=== PATIENT | female | born 1985 | race Caucasian/White ===

== ENCOUNTER 2017-09-23 23:11 | Inpatient (IN) | payer BC ==
[~2017-09-23] VITALS: Ht 165.1 cm; Wt 53.2 kg
[~2017-09-23 23:11] MED LIST: MECL12.52 PO
[2017-09-23 23:54] LABS: BILIRUBIN,URINE NEGATIVE (NEG); GLUCOSE,URINE NEGATIVE (NEG); NITRITE,URINE NEGATIVE (NEG); PH,URINE 7.5; PROTEIN,URINE NEGATIVE (NEG-TRACE); UROBILINOGEN,URINE 0.2 mg/dL (0.2 mg/dL)
[2017-09-23 23:59] LABS: BACTERIA,URINE 0 /HPF (0-FEW); SQUAMOUS EPITHELIAL CELL,UR FEW /LPF; WBC,URINE OCC /HPF (0-4)
[2017-09-24] MEDS ORDERED: ASPIRIN CHEWABLE 81 MG TABLET. PO ONE (00:15)
[2017-09-24] MEDS ORDERED: LABETALOL 20 MG/4 ML DISP.SYRIN. IVP ONE (00:15)
[2017-09-24] MEDS ORDERED: IV NORMAL SALINE 500ML BAG 500 ML IV ONE (00:15)
--- NOTE | 2017-09-24 00:15 | RAD ---
CT Head W/O Contrast: History: slurred speech Comparison: none Axial images were obtained without contrast. The rush and white matter appears normal and symmetrical for the patients age. There is no mass effect, extraaxial fluid collections or hydrocephalus. There is no gross bleed. There is no focal loss of rush-white matter distinction to suggest acute ischemia, i.e. stroke. Impression: No acute findings. RS Compliance Statement: One or more of the following individualized dose reduction techniques were utilized for this examination: 1. Automated exposure control 2. Adjustment of the mA and/or kV according to patient size 3. Use of iterative reconstruction technique Electronically signed by: Edson Gar III, MD (09/24/2017 12:12 AM) [facility]
--- NOTE | 2017-09-24 00:17 | PHYS DOC ---
Past Medical History Past Medical History: Anxiety, Depression, Hypertension Past Surgical History: No Surgical History Additional Past Surgical Histo: DNC Alcohol Use: Occasionally Drug Use: None Adult General Chief Complaint Chief Complaint: MULTIPLE COMPLAINTS HPI HPI 31-year-old female who presents the emergency department via [facility] after having a "allergic reaction". She started a new medication as citalopram and after taking one pill 30 minutes later reports having blotchy redness over the chest area. Patient also reports right-sided facial droop which she noticed after taking the pill at 7:00. She states her last known well was 7:00. She also has a headache on the right side that is a sharp shooting throbbing pain that is nonradiating intermittent. She also reports feeling tingling on the right side of the face. She reports mild slurred speech that is now improved. She denies any vision changes or walking abnormalities. She denies any numbness weakness or tingling of her upper or lower extremities. Review of systems is negative for chest pain abdominal pain shortness of breath. Negative for fevers or chills. All other review of systems is negative unless otherwise noted in history of present illness. ED course: 31-year-old female presenting to the emergency department today with a rash after taking a medication along with also facial asymmetry slurred speech and decreased sensation on the right side of her face. Last known well was 7:00 PM which places the patient outside of the timeframe for TPA. I discussed the case with Dr. Parry who agrees with the patient's care at 1140pm. Brinda recommends head ct and mri of brain and admission. Patient was given IV labetalol for her blood pressure. Head CT obtained which was not back prior to the patient being signed out. Oral aspirin ordered as well. Patient was signed out to Dr. Rodriguez at midnight with plans to follow up on labs and head ct, and admit the patient to the hospital for neurology consultation and MRI of the brain. Review of Systems Review of Systems SEE ABOVE. Current Medications Current Medications Current Medications Medications (Trade) Dose Ordered Sig/Katie Start Time Stop Time Status Last Admin Dose Admin Labetalol HCl (Normodyne) 20 mg 1X ONCE 09/24/17 00:00 09/24/17 00:01 UNV Allergies Allergies Allergies Coded Allergies Type Severity Reaction Last Updated Verified diphenhydramine Allergy Intermediate 05/30/16 Yes cetirizine Allergy Unknown 09/23/17 Yes clindamycin Allergy Unknown 09/23/17 Yes loratadine Allergy Unknown 09/23/17 Yes Uncoded Allergies Type Severity Reaction Last Updated Verified anti-histamines Allergy Unknown 09/23/17 Physical Exam Physical Exam SEE ABOVE Constitutional: Well developed, well nourished, no acute distress, non-toxic appearance. HENT: Normocephalic, atraumatic, bilateral external ears normal, oropharynx moist, no oral exudates, nose normal. [] Eyes: PERRLA, EOMI, conjunctiva normal, no discharge. [] Neck: Normal range of motion, no tenderness, supple, no stridor. Cardiovascular:Heart rate regular rhythm, no murmur [] Lungs & Thorax: Bilateral breath sounds clear to auscultation . No wheezing or crackles. Patient is breathing comfortably in the examination room on room air. Abdomen: Bowel sounds normal, soft, no tenderness, no masses, no pulsatile masses. [] Skin: Warm, dry, no erythema, there is no rash on the patient's chest. Back: No tenderness, no CVA tenderness. Extremities: No tenderness, no cyanosis, no clubbing, ROM intact, no edema. [] Neurologic: Mental status: Awake oriented and alert x3 Cranial nerves: Extraocular movements intact, eyebrows jinny bilaterally smile symmetric -no objective sign of facial asymmetry., uvula elevation, shoulder shrug intact, tongue protrusion normal DTRs: 2+ Sensation: Equal and symmetric in the upper and lower extremities. Patient has mild decreased sensation that is subjective in the right facial region. Strength: 5/5 in upper and lower extremities bilaterally Normal [id number]. Normal finger to nose. Normal rapid alternating movements. Psychologic: Affect normal, judgement normal, mood normal. Current Patient Data Vital Signs Vital Signs Date Time Temp Pulse Resp B/P (MAP) Pulse Ox O2 Delivery O2 Flow Rate FiO2 09/23/17 23:15 97.6 83 18 184/111 (135) 98 Room Air 97.6 Lab Values Laboratory Tests Test 09/23/17 23:15 09/23/17 23:21 Urine Collection Type Unknown Urine Color Yellow Urine Clarity Clear Urine pH 7.5 Urine Specific [place] 1.010 Urine Protein Negative mg/dL (NEG-TRACE) Urine Glucose (UA) Negative mg/dL (NEG) Urine Ketones (Stick) Negative mg/dL (NEG) Urine Blood Moderate (NEG) Urine Nitrite Negative (NEG) Urine Bilirubin Negative (NEG) Urine Urobilinogen Dipstick 0.2 mg/dL (0.2 mg/dL) Urine Leukocyte Esterase Negative (NEG) Urine RBC 11-20 /HPF (0-2) Urine WBC Occ /HPF (0-4) Urine Squamous Epithelial Cells Few /LPF Urine Bacteria 0 /HPF (0-FEW) Urine Mucus Slight /LPF POC Urine HCG, Qualitative Hcg negative (Negative) EKG EKG [] Radiology/Procedures Radiology/Procedures [] Course & Med Decision Making Course & Med Decision Making Pertinent Labs and Imaging studies reviewed. (See chart for details) [] Dragon Disclaimer Dragon Disclaimer This electronic medical record was generated, in whole or in part, using a voice recognition dictation system. Departure Departure Impression: Primary Impression: Facial asymmetry Additional Impression: Facial numbness Disposition: ADMITTED INPATIENT Admitting Physician: Dara Fowler Condition: STABLE Referrals: UNKNOWN PCP NAME (PCP) Problem Qualifiers ROBERTO CARLOS HARTMANN MD Sep 24, 2017 00:17
[2017-09-24] MEDS ORDERED: MORPHINE SULFATE 2 MG/ML DISP.SYRIN. IV PRN (00:30)
[2017-09-24] MEDS ORDERED: IV NORMAL SALINE 1000ML BAG 1,000 ML IV SCH (00:30)
[2017-09-24] MEDS ORDERED: ONDANSETRON PF 4 MG/2 ML VIAL. IV PRN (00:30)
[2017-09-24 00:43] LABS: BASO % 0 % (0-3); EOS % 0 % (0-3); HEMATOCRIT 43.2 % (36.0-47.0); HEMOGLOBIN 14.4 g/dL (12.0-15.5); LYMPH # 1.4 x10^3/uL (1.0-4.8); LYMPH % 14 % (24-48); MEAN CORPUSCULAR HEMOGLOBIN 29 pg (25-35); MEAN CORPUSCULAR HGB CONC 33 g/dL (31-37); MEAN CORPUSCULAR VOLUME 86 fL (79-100); MONO % 5 % (0-9); NEUT % 81 % (31-73); PLATELET COUNT 216 x10^3/uL (140-400); RED BLOOD COUNT 5.04 x10^6/uL (3.50-5.40); RED CELL DISTRIBUTION WIDTH 13.8 % (11.5-14.5); WHITE BLOOD COUNT 10.1 x10^3/uL (4.0-11.0)
[2017-09-24 00:53] LABS: CALCIUM 8.8 mg/dL (8.5-10.1); CREATININE 0.7 mg/dL (0.6-1.0); GFR 97.6; POTASSIUM 3.5 mmol/L (3.5-5.1)
[2017-09-24 00:57] LABS: ALBUMIN 3.8 g/dL (3.4-5.0); DIRECT BILIRUBIN 0.1 mg/dL (0.0-0.2); TOTAL BILIRUBIN 0.3 mg/dL (0.2-1.0); TOTAL PROTEIN 8.2 g/dL (6.4-8.2)
[2017-09-24 02:09] VITALS: BP 165/107
[2017-09-24 03:16] VITALS: BP 146/100
[2017-09-24 07:00] VITALS: BP 145/96
--- NOTE | 2017-09-24 07:01 | EKG ---
[facility] [address] [place] [address] Test Date: 2017-09-24 Test Time: 00:12:28 Pat Name: AMALIA FLETCHER Department: Room: [facility] Gender: F [employer] Manufacturing Supervisor: : 1985 Requested By: ROBERTO CARLOS HARTMANN Order Number: [id number] Reading MD: Victor Manuel Denton Measurements Intervals Clark Rate: 82 P: 59 DE: 158 QRS: 45 QRSD: 78 T: 23 QT: 392 QTc: 461 Interpretive Statements SINUS RHYTHM NORMAL ECG Electronically Signed On 10-02-2017 9:23:59 PUBLIC HEALTH TRAINING ASSISTANT by Victor Manuel Denton
--- NOTE | 2017-09-24 09:43 | SSS ---
ADMIT DATE: 09/24/2017 CHIEF COMPLAINT: Right facial numbness, "my right ear feels like it is popping," anxiety, hypertension. HISTORY OF PRESENT ILLNESS: The patient is a pleasant 31-year-old female who is going through a divorce. She also is raising 3 children at home. Does not really work at this time. She admits she is under a lot of stress and has a lot of anxiety. She is having TIA-like symptoms with right facial and scalp paresthesias. Her ear feels like it is going to pop. She also has high blood pressures into the 180s subjectively. I discussed the case with ER physician. We are going to admit the patient and consult Neurology. PAST MEDICAL HISTORY: Anxiety, depression, and D and C. ALLERGIES: ANTIHISTAMINES, CLINDAMYCIN, DIPHENHYDRAMINE AND LORATADINE. FAMILY HISTORY: Diabetes. SOCIAL HISTORY: She does not drink, smoke or take drugs. She is going through a divorce. She states she is very stressed. She has 3 young children she is raising. MEDICATIONS: Reviewed. REVIEW OF SYSTEMS: GENERAL: No history of weight change, weakness or fevers. SKIN: No bruising, hair changes or rashes. EYES: No blurred, double or loss of vision. EARS: She complains of her right ear popping. NOSE AND THROAT: No history of nosebleeds, hoarseness or sore throat. HEART: No history of palpitations, chest pain or shortness of breath on exertion. LUNGS: Denies cough, hemoptysis, wheezing or shortness of breath. GASTROINTESTINAL: Denies changes in appetite, nausea, vomiting, diarrhea or constipation. GENITOURINARY: No history of frequency, urgency, hesitancy or nocturia. NEUROLOGIC: She complains of right scalp and face numbness intermittently. PSYCHIATRIC: She complains of anxiety. ENDOCRINE: No history of heat or cold intolerance, polyuria or polydipsia. EXTREMITIES: Denies muscle weakness, joint pain, pain on walking or stiffness. PHYSICAL EXAMINATION: VITAL SIGNS: Temperature afebrile, pulse 83, respirations 20, blood pressure is down to 145/96. GENERAL: She is alert, cooperative, pleasant. Has a friend here named Mike. She seems to be good support for her. HEART: Normal S1, S2. LUNGS: Clear to auscultation. ABDOMEN: Soft, positive bowel sounds. EXTREMITIES: No edema. SKIN: No rashes. ENDOCRINE: No thyromegaly. LYMPHATICS: No cervical nodes. HEMATOPOIETIC: No bruising. NEUROLOGICAL: No focal deficits. PSYCHIATRIC: She seems quite anxious, but very pleasant. LABORATORY DATA: Electrolytes normal. Hematology normal. Urinalysis negative. CT of the head is negative. ASSESSMENT AND PLAN: Subjective numbness of the scalp and face on the right side. Suspect this is all psychosomatic. Nevertheless, we have admitted the patient. We are going to consult Dr. Parry for a second opinion. I believe he has ordered an MRI. If the MRI is negative, we plan to discharge with close outpatient followup. DISPOSITION: Home. ACTIVITY: As tolerated. DIET: Low sodium. MEDICATIONS: Please see MRAD. Total time 32 minutes. ROBINL David HAY DO DR: SONAL/kelvin JOB#: [id number] / [id number]
[2017-09-24] MEDS ORDERED: IBUPROFEN 200 MG TABLET. PO PRN (09:45)
[2017-09-24 11:00] VITALS: BP 149/96
--- NOTE | 2017-09-24 15:13 | RAD ---
INDICATION: Right-sided tingling and numbness. Right eyelid is heavy. Symptoms for one day. Left facial numbness. TECHNIQUE: Sagittal T1, axial T1, axial T2, axial FLAIR, axial T2 gradient, coronal T2, and diffusion imaging with ADC map was performed. Comparison CT head is from 1 day earlier. FINDINGS: The ventricles and sulci are within normal limits for age. There is no acute intracranial hemorrhage or extra-axial fluid collection. There is no mass effect or midline shift. There is no restricted diffusion to suggest an acute infarct. 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 Pituitary and suprasellar region are unremarkable. Intracranial flow voids are preserved. There is minimal ethmoid mucosal thickening. Fluid in the optic sheaths is nonspecific, can be a finding of elevated intracranial pressures although there are no additional findings to suggest intracranial hypertension. IMPRESSION: No acute intracranial findings. Electronically signed by: Igor Pennington MD (09/24/2017 3:10 PM) [facility]
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
[2017-09-25] MEDS ORDERED: ASPIRIN 325 MG TABLET PO SCH (08:00)
== END 2017-09-24 14:52 | disposition home or self-care (01) | DRG 92 ==
LOC: ER 23:11 → 6 SOUTH 09-24 00:24
PROVIDERS: ADMIT Internal Medicine; ATTEND Internal Medicine
DX: R29.810 Facial weakness (principal); I67.4 Hypertensive encephalopathy; F32.9 Major depressive disorder, single episode, unspecified; F41.9 Anxiety disorder, unspecified; T43.225A Adverse effect of selective serotonin reuptake inhibitors, initial encounter; F45.9 Somatoform disorder, unspecified; I10 Essential (primary) hypertension; Z88.8 Allergy status to other drugs, medicaments and biological substances; Y92.89 Other specified places as the place of occurrence of the external cause; Z82.3 Family history of stroke; Z83.3 Family history of diabetes mellitus; Z79.899 Other long term (current) drug therapy; Z87.81 Personal history of (healed) traumatic fracture
CPT/HCPCS: 36415; 70450; 70551; 80048; 80076; 81001; 81025; 83690; 84484; 85025; 93005; 96374; J3490; J7030; J7040; 99285-25